=== PATIENT | female | born 1990 | race American Indian/Alaskan Native ===

== ENCOUNTER 2018-07-22 19:51 | Emergency (ER) | payer OTHER ==
[2018-07-22 20:41] LABS: Hematocrit 29.8 % (30.3-42.9); Hemoglobin 9.3 gm/dl (10.1-14.3); Mean Corpuscular HGB Conc 31 % (30-34); Platelet Count 380 K/mm3 (140-440); Red Blood Count 4.93 M/mm3 (3.65-5.03)
[2018-07-22 20:43] LABS: Mean Corpuscular Hemoglobin 19 pg (28-32); Mean Corpuscular Volume 61 fl (79-97); Red Cell Distribution Width 20.7 % (13.2-15.2)
[2018-07-22 20:55] LABS: Alanine Aminotransferase 9 units/L (7-56); Albumin 4.8 g/dL (3.9-5); BUN/Creatinine Ratio 13; Blood Urea Nitrogen 8 mg/dL (7-17); Calcium 9.5 mg/dL (8.4-10.2); Hemolysis Index 3
[2018-07-22 21:58] LABS: Target Cells 3+; Total Cells Counted 100
[2018-07-22 22:00] LABS: Hypochromasia 2+; Large Platelets Few; Platelet Estimate Consistent w Auto; Schistocytes Rare
[2018-07-23] MEDS ORDERED: TYLENOL PO ONE (00:06)
[2018-07-23] MEDS ORDERED: TORADOL IV ONE (00:06)
[2018-07-23] MEDS ORDERED: SUBLIMAZE IV ONE (00:06)
--- NOTE | 2018-07-23 00:07 | Emergency Department Report ---
ED Female HPI - General Chief complaint: Abdominal Pain Stated complaint: ABD PAIN Time Seen by Provider: 07/22/18 23:55 Source: patient, RN notes reviewed Mode of arrival: Ambulatory Limitations: No Limitations - History of Present Illness Initial comments: This is a 27-year-old female who is not known to this provider previously. The patient follows with the [facility]. She presents to the ER with the complaint of suprapubic and left lower quadrant pain since Friday. Pain crampy, achy, twisting and sharp. Positive nausea, no vomiting. No right lower quadrant pain. No urinary symptoms. No vaginal discharge. Reports that a sexual contact was diagnosed with an STD, and she is concerned that she might have one as well. Denies sore throat, upper abdominal pain, chest pain, extremity pain and swelling. MD Complaint: pelvic pain, possible STD, other -: Gradual, days(s) Radiation: non-radiating, suprapubic, LLQ Severity: moderate Quality: cramping Consistency: intermittent Improves with: other Worsens with: other Are you Now?: No Associated Symptoms: abdominal pain, nausea/vomiting, loss of appetite. denies: vaginal discharge, vaginal bleeding, fever/chills, headaches, dysuria, hematuria, rash, seizure, shortness of breath, syncope, weakness - Related Data Sexually active: Yes Previous Rx's Medication Instructions Recorded Last Taken Type Hydrocortisone 2.5% [Hytone 2.5% 1 applicatio TP TID #30 gm 06/14/13 Unknown Rx CREAM] Sulfamethoxazole/Trimethoprim 1 tab PO Q12H #14 tablet 06/14/13 Unknown Rx [Bactrim DS] Ibuprofen [Motrin] 400 mg PO Q8H PRN #30 tablet 04/13/15 Unknown Rx Sulfamethoxazole/Trimethoprim 1 each PO BID #14 tablet 04/13/15 Unknown Rx [Bactrim DS TAB] traMADol [Ultram] 50 mg PO Q6HR PRN #14 tablet 04/13/15 Unknown Rx Cetirizine HCl [ZyrTEC] 10 mg PO DAILY #30 capsule 06/04/16 Unknown Rx Prednisone [predniSONE 10 mg 10 mg PO .TAPER #1 tab.ds.pk 06/04/16 Unknown Rx (6-Day Pack, 21 Tabs)] Triamcinolone Acetonide 15 gm TP TID #1 oint...g. 06/04/16 Unknown Rx [Triamcinolone Acetonide Oint 0.5%] Ferrous Sulfate [Feosol 325 MG tab] 325 mg PO TID #90 tablet 07/23/18 Unknown Rx Ibuprofen [Ibu] 400 mg PO Q6HR PRN #30 tablet 07/23/18 Unknown Rx Ondansetron [Zofran Odt] 4 mg PO Q8HR PRN #20 tab.rapdis 07/23/18 Unknown Rx Allergies Allergy/AdvReac Type Severity Reaction Status Date / Time No Known Allergies Allergy Unverified 06/14/13 06:26 ED Review of Systems ROS: Stated complaint: ABD PAIN Other details as noted in HPI Constitutional: denies: fever Eyes: denies: eye discharge ENT: denies: epistaxis Respiratory: denies: cough Cardiovascular: denies: chest pain Gastrointestinal: abdominal pain Genitourinary: denies: dysuria Musculoskeletal: denies: back pain Skin: denies: lesions Neurological: denies: headache Psychiatric: anxiety ED Past Medical Hx - Past Medical History Previous Medical History?: Yes Additional medical history: ovarian cyst - Surgical History Past Surgical History?: Yes Additional Surgical History: tonsilectomy - Social History Smoking Status: Current Every Day Smoker Substance Use Type: Alcohol, Marijuana - Medications Home Medications: Home Medications Medication Instructions Recorded Confirmed Last Taken Type Hydrocortisone 2.5% [Hytone 2.5% 1 applicatio TP TID #30 gm 06/14/13 Unknown Rx CREAM] Sulfamethoxazole/Trimethoprim 1 tab PO Q12H #14 tablet 06/14/13 Unknown Rx [Bactrim DS] Ibuprofen [Motrin] 400 mg PO Q8H PRN #30 tablet 04/13/15 Unknown Rx Sulfamethoxazole/Trimethoprim 1 each PO BID #14 tablet 04/13/15 Unknown Rx [Bactrim DS TAB] traMADol [Ultram] 50 mg PO Q6HR PRN #14 tablet 04/13/15 Unknown Rx Cetirizine HCl [ZyrTEC] 10 mg PO DAILY #30 capsule 06/04/16 Unknown Rx Prednisone [predniSONE 10 mg 10 mg PO .TAPER #1 tab.ds.pk 06/04/16 Unknown Rx (6-Day Pack, 21 Tabs)] Triamcinolone Acetonide 15 gm TP TID #1 oint...g. 06/04/16 Unknown Rx [Triamcinolone Acetonide Oint 0.5%] Ferrous Sulfate [Feosol 325 MG tab] 325 mg PO TID #90 tablet 07/23/18 Unknown Rx Ibuprofen [Ibu] 400 mg PO Q6HR PRN #30 tablet 07/23/18 Unknown Rx Ondansetron [Zofran Odt] 4 mg PO Q8HR PRN #20 tab.rapdis 07/23/18 Unknown Rx ED Physical Exam - General Limitations: No Limitations General appearance: alert, anxious - Head Head exam: Present: atraumatic, normocephalic - Eye Eye exam: Present: normal appearance, EOMI. Absent: nystagmus - ENT ENT exam: Present: normal exam, normal orophraynx, mucous membranes moist, normal external ear exam - Neck Neck exam: Present: normal inspection, full ROM. Absent: tenderness, meningismus - Respiratory Respiratory exam: Present: normal lung sounds bilaterally. Absent: respiratory distress - Cardiovascular Cardiovascular Exam: Present: regular rate, normal rhythm, normal heart sounds. Absent: bradycardia, tachycardia, irregular rhythm, systolic murmur, diastolic murmur, rubs, gallop - GI/Abdominal GI/Abdominal exam: Present: soft, tenderness, other (there is suprapubic and left lower quadrant tenderness. There is no right lower quadrant tenderness. There is negative Rovsing sign.). Absent: distended, guarding, rebound, rigid, pulsatile mass - External exam: Present: normal external exam Speculum exam: Present: normal speculum exam. Absent: vaginal bleeding Bi-manual exam: Present: cervical motion tendernes, adnexal tenderness, other (chaperoned by FERNANDO Quintana). Absent: adnexal mass, uterine enlargement - Extremities Exam Extremities exam: Present: normal inspection, full ROM, other (2+ pulses noted in the bilateral upper, lower extremities. Compartments soft. No long bony tenderness. The pelvis is stable.). Absent: pedal edema, joint swelling, calf tenderness - Back Exam Back exam: Present: normal inspection, full ROM. Absent: tenderness, CVA tenderness (R), paraspinal tenderness, vertebral tenderness - Neurological Exam Neurological exam: Present: alert, CN II-XII intact, normal gait, other (Extraocular movements intact. Tongue midline. No facial droop. Facial sensation intact to light touch in the V1, V2, V3 distribution bilaterally. 5 and 5 strength in 4 extremities.. Sensation is intact to light touch in 4 extremities.). Absent: motor sensory deficit - Psychiatric Psychiatric exam: Present: normal affect, normal mood - Skin Skin exam: Present: warm, dry, intact, normal color. Absent: rash ED Course Vital Signs 07/22/18 07/22/18 07/22/18 19:57 23:42 23:54 Temperature 99.4 F 97.9 F Pulse Rate 97 H 75 Respiratory 20 15 Rate Blood Pressure 149/104 136/93 Blood Pressure 136/93 [Left] O2 Sat by Pulse 97 100 Oximetry 07/23/18 01:30 Temperature Pulse Rate 73 Respiratory 13 Rate Blood Pressure 146/99 Blood Pressure [Left] O2 Sat by Pulse 98 Oximetry - Reevaluation(s) Reevaluation #1: 07/23/18 00:45 Differential diagnosis, including but not limited to: Ovarian cyst, uterine fibroids, pelvic inflammatory disease, urinary tract infection, constipation Assessment plan: 27-year-old female with gynecologic and lower abdominal pain, recent reported sexual contact with a positive STD. Patient afebrile with reassuring vital signs, with the exception of elevated blood pressure. There is no right lower quadrant tenderness. The patient is nontoxic appearing. Laboratory studies reviewed and appreciated. Gynecologic ultrasound pending, patient will be treated empirically for presumed STI. Has mild microcytic anemia, not symptomatic, on review of systems, patient does endorse heavy menstruation. She is amenable to initiation of iron therapy. Reevaluation #2: 07/23/18 01:49 Patient reports that she feels much improved. She is noted to be using a cell [employer] phone currently, and in no acute distress. Ultrasound interpretation is pending at this time. Reevaluation #3: 07/23/18 01:56 ultrasound with no acute surgical disease will discharge ED Medical Decision Making - Lab Data Result diagrams: 07/22/18 20:20 07/22/18 20:20 Vital Signs 07/22/18 07/22/18 19:57 23:42 Temperature 99.4 F 97.9 F Pulse Rate 97 H 75 Respiratory 20 15 Rate Blood Pressure 149/104 Blood Pressure 136/93 [Left] O2 Sat by Pulse 97 100 Oximetry Lab Results 07/22/18 07/22/18 07/22/18 Range/Units 20:20 20:20 20:20 WBC 8.0 (4.5-11.0) K/mm3 RBC 4.93 (3.65-5.03) M/mm3 Hgb 9.3 L (10.1-14.3) gm/dl Hct 29.8 L (30.3-42.9) % MCV 61 L (79-97) fl MCH 19 L (28-32) pg MCHC 31 (30-34) % RDW 20.7 H (13.2-15.2) % Plt Count 380 (140-440) K/mm3 Add Manual Diff Complete Total Counted 100 Seg Neuts % (Manual) 51.0 (40.0-70.0) % Band Neutrophils % 0 % Lymphocytes % (Manual) 38.0 H (13.4-35.0) % Reactive Lymphs % (Man) 4.0 % Monocytes % (Manual) 4.0 (0.0-7.3) % Eosinophils % (Manual) 1.0 (0.0-4.3) % Basophils % (Manual) 2.0 H (0.0-1.8) % Metamyelocytes % 0 % Myelocytes % 0 % Promyelocytes % 0 % Blast Cells % 0 % Nucleated RBC % Not Reportable Seg Neutrophils # Man 4.1 (1.8-7.7) K/mm3 Band Neutrophils # 0.0 K/mm3 Lymphocytes # (Manual) 3.0 (1.2-5.4) K/mm3 Abs React Lymphs (Man) 0.3 K/mm3 Monocytes # (Manual) 0.3 (0.0-0.8) K/mm3 Eosinophils # (Manual) 0.1 (0.0-0.4) K/mm3 Basophils # (Manual) 0.2 H (0.0-0.1) K/mm3 Metamyelocytes # 0.0 K/mm3 Myelocytes # 0.0 K/mm3 Promyelocytes # 0.0 K/mm3 Blast Cells # 0.0 K/mm3 WBC Morphology Not Reportable Hypersegmented Neuts Not Reportable Hyposegmented Neuts Not Reportable Hypogranular Neuts Not Reportable Smudge Cells Not Reportable Toxic Granulation Not Reportable Toxic Vacuolation Not Reportable Dohle Bodies Not Reportable Pelger-Huet Anomaly Not Reportable Melly Rods Not Reportable Platelet Estimate Consistent w auto Clumped Platelets Not Reportable Plt Clumps, EDTA Not Reportable Large Platelets Few Giant Platelets Not Reportable Platelet Satelliting Not Reportable Plt Morphology Comment Not Reportable RBC Morphology Not Reportable Dimorphic RBCs Not Reportable Polychromasia Not Reportable Hypochromasia 2+ Poikilocytosis Not Reportable Anisocytosis Not Reportable Microcytosis Not Reportable Macrocytosis Not Reportable Spherocytes Not Reportable Pappenheimer Bodies Not Reportable Sickle Cells Not Reportable Target Cells 3+ Tear Drop Cells Not Reportable Ovalocytes Not Reportable Helmet Cells Not Reportable [place] Bodies Not Reportable [place] Rings Not Reportable [place] Cells Not Reportable Bite Cells Not Reportable Crenated Cell Not Reportable Elliptocytes 1+ Acanthocytes (Spur) Not Reportable Rouleaux Not Reportable Hemoglobin C Crystals Not Reportable Schistocytes Rare Malaria parasites Not Reportable Jarvis Bodies Not Reportable Hem Pathologist Commnt No Sodium 138 (137-145) mmol/L Potassium 3.4 L (3.6-5.0) mmol/L Chloride 99.7 (98-107) mmol/L Carbon Dioxide 27 (22-30) mmol/L Anion Gap 15 mmol/L BUN 8 (7-17) mg/dL Creatinine 0.6 L (0.7-1.2) mg/dL Estimated GFR > 60 ml/min BUN/Creatinine Ratio 13 % Glucose 102 H (65-100) mg/dL Calcium 9.5 (8.4-10.2) mg/dL Total Bilirubin 0.20 (0.1-1.2) mg/dL AST 19 (5-40) units/L ALT 9 (7-56) units/L Alkaline Phosphatase 66 (35-129) units/L Total Protein 7.4 (6.3-8.2) g/dL Albumin 4.8 (3.9-5) g/dL Albumin/Globulin Ratio 1.8 % HCG, Qual Negative (Negative) - Radiology Data Radiology results: pending Critical care attestation.: If time is entered above; I have spent that time in minutes in the direct care of this critically ill patient, excluding procedure time. ED Disposition Clinical Impression: Lower abdominal pain, Microcytic anemia Disposition: TO HOME OR SELFCARE Is pt being admited?: No Does the pt Need Aspirin: No Condition: Good Instructions: Pelvic Inflammatory Disease (ED) Additional Instructions: , you'll be treated empirically for disease called pelvic inflammatory disease. We typically treat young females with unexplained lower abdominal pain to protect your ability to have children safely in the future. Cultures were sent today, and results will be available next 3-5 days. Please have your primary care doctor call the medical records department to obtain your culture results. Take the antibiotic therapy as directed. Take the nausea medication and pain medication as directed. I recommend outpatient testing for sexually transmitted diseases, including hepatitis, syphilis and HIV. I also recommend that you abstain from sexual activity until you have completed her antibiotic therapy, a physician states that it is safe for you to resume sexual activity, and any partners that you have been sexually active with have been tested/treated/evaluated for sexual transmitted diseases. Please follow-up with physician within 3-5 days. I recommend that you return to the ER right away with worsening pain, migration of pain, intractable nausea/vomiting, inability tolerate liquid feeds. Laboratory studies also demonstrated mild anemia, therefore, take the iron supplementation as directed, drink plenty of water when taking this medication, as this medication may cause black stools, constipation. Prescriptions: Ferrous Sulfate [Feosol 325 MG tab] 325 mg PO TID #90 tablet Ibuprofen [Ibu] 400 mg PO Q6HR PRN #30 tablet PRN Reason: Pain , Severe (7-10) Ondansetron [Zofran Odt] 4 mg PO Q8HR PRN #20 tab.rapdis PRN Reason: Nausea Referrals: [facility] [Provider Group] - 3-5 Days [facility], [facility] [Provider Group] - 3-5 Days [facility] [Provider Group] - 3-5 Days
[2018-07-23] MEDS ORDERED: ROCEPHIN IV ONE (00:17)
[2018-07-23] MEDS ORDERED: ZITHROMAX PO ONE (00:17)
[2018-07-23] MEDS ORDERED: K-DUR PO ONE (00:47)
[2018-07-23 01:09] LABS: Bilirubin,Urine NEG (Negative); Blood,Urine NEG (Negative); Color,Urine Straw (Yellow); Protein,Urine <15 mg/dL mg/dL (Negative); Urobilinogen,Urine < 2.0 mg/dL (<2.0)
[2018-07-23 01:39] VITALS: BP 146/99
--- NOTE | 2018-07-23 01:54 | Ultrasound Report ---
FINAL REPORT EXAM: US PELVIS DUPLEX DOPPLER COMP HISTORY: pelvic pain TECHNIQUE: Transabdominal and transvaginal sonographic evaluation was performed of the female pelvis with and without color Doppler imaging. PRIORS: None. FINDINGS: The uterine myometrium is unremarkable with no focal lesion identified. The endometrial stripe is chauncey ears uniform in thickness. Survey of the adnexal regions reveal normal flow to both ovaries. No foca l ovarian lesion appreciated. No significant free fluid within the posterior cul-de-sac. Measurements: Uterus: 7.2 x 3.8 x 5.7 cm. Endometrial stripe: 13.5 mm. Right ovary: 3.2 x 2.7 x 2.9 cm. Left ovary: 3.1 x 1.9 x 2.3 cm. IMPRESSION: Unremarkable pelvic ultrasound. No evidence of ovarian torsion or mass.
== END 2018-07-23 02:15 | disposition home or self-care (01) ==
LOC: ED 19:51
DX: D50.9 Iron deficiency anemia, unspecified (principal); R10.2 Pelvic and perineal pain; F17.200 Nicotine dependence, unspecified, uncomplicated; F12.10 Cannabis abuse, uncomplicated; Z79.899 Other long term (current) drug therapy
CPT/HCPCS: 36415; 76830; 80053; 81001; 84703; 85007; 85025; 87086; 87210; 87591; 93975; 96374; 96375; 99284; J0696; J1885; J3010